=== PATIENT | male | born 1975 | race Hispanic/Latino ===

== ENCOUNTER 2017-07-17 12:35 | Emergency (ER) | payer BC, OTHER ==
[2017-07-17] MEDS ORDERED: NACL 0.9% 1000 ML 1,000 ML IV ONE ×3 (13:21→19:47)
[2017-07-17 13:54] LABS: Eosinophils % (Auto) 1.6 % (0.0-4.3); Hematocrit 48.6 % (35.5-45.6); Hemoglobin 16.3 gm/dl (11.8-15.2); Mean Corpuscular HGB Conc 34 % (32-34); Mean Corpuscular Hemoglobin 28 pg (28-32); Mean Corpuscular Volume 84 fl (84-94); Platelet Count 247 K/mm3 (140-440); Red Cell Distribution Width 13.8 % (13.2-15.2); White Blood Count 11.9 K/mm3 (4.5-11.0)
[2017-07-17 14:02] LABS: Anion Gap 18 mmol/L; BUN/Creatinine Ratio 18; Blood Urea Nitrogen 16 mg/dL (9-20); Carbon Dioxide 27 mmol/L (22-30); Chloride 100.7 mmol/L (98-107); Glucose 113 mg/dL (75-100); Potassium 4.4 mmol/L (3.6-5.0); Sodium 141 mmol/L (137-145)
[2017-07-17 14:04] LABS: Creatine Kinase MB 1.2 ng/mL (0.0-4.0)
[2017-07-17 14:07] LABS: Alanine Aminotransferase 36 units/L (7-56); Albumin 3.9 g/dL (3.9-5); Albumin/Globulin Ratio 1.5 %; Alkaline Phosphatase 66 units/L (35-129); Creatine Kinase 54 units/L (55-170); Total Protein 6.5 g/dL (6.3-8.2)
[2017-07-17 14:08] LABS: Bilirubin,Direct < 0.2 mg/dL (0-0.2); Bilirubin,Indirect 0.1 mg/dL
[2017-07-17 14:09] LABS: Bilirubin,Urine NEG (Negative); Blood,Urine SM (Negative); Ketones,Urine NEG (Negative); Leukocyte Esterase,Urine NEG (Negative); Mucus,Urine FEW /HPF; Nitrite,Urine NEG (Negative); Urobilinogen,Urine < 2.0 mg/dL (<2.0)
[2017-07-17] MEDS ORDERED: GEODON IM ONE ×2 (14:20→14:22)
[2017-07-17] MEDS ORDERED: WATER FOR INJ (PF) 10 ML ONE ×2 (14:21→19:43)
[2017-07-17 16:04] LABS: Urine Drugs of Abuse Note Disclamer
[2017-07-17] MEDS ORDERED: GEODON IM PRN (16:14)
--- NOTE | 2017-07-17 16:15 | Emergency Department Report ---
ED General Adult HPI - General Chief complaint: Overdose Stated complaint: OVERDOSE Time Seen by Provider: 07/17/17 12:53 Source: patient, EMS Mode of arrival: Stretcher Limitations: No Limitations - Related Data Allergies Allergy/AdvReac Type Severity Reaction Status Date / Time sulfamethoxazole AdvReac Hives Verified 07/17/17 13:02 [From Bactrim] trimethoprim [From Bactrim] AdvReac Hives Verified 07/17/17 13:02 ED Review of Systems ROS: Stated complaint: OVERDOSE Other details as noted in HPI ED Past Medical Hx - Past Medical History Previous Medical History?: Yes Hx Hypertension: Yes Hx Arthritis: Yes Hx Psychiatric Treatment: Yes Hx Asthma: Yes - Surgical History Past Surgical History?: No - Social History Smoking Status: Smoker, Current Status Unknown Substance Use Type: Alcohol ED Physical Exam - General Limitations: No Limitations ED Course Vital Signs 07/17/17 07/17/17 07/17/17 12:56 13:20 14:33 Temperature 98.4 F 97.9 F Pulse Rate 96 H 85 92 H Respiratory 20 16 16 Rate Blood Pressure 110/62 Blood Pressure 127/78 105/67 [Left] O2 Sat by Pulse 98 100 100 Oximetry ED Medical Decision Making - Lab Data Result diagrams: 07/17/17 13:18 07/17/17 13:18 Critical care attestation.: If time is entered above; I have spent that time in minutes in the direct care of this critically ill patient, excluding procedure time. ED Disposition Condition: Stable Referrals: PRIMARY CARE [Primary Care Provider] - 3-5 Days
--- NOTE | 2017-07-17 19:46 | Emergency Department Report ---
History of Present Illness - General Chief Complaint: Overdose Stated Complaint: OVERDOSE Time Seen by Provider: 07/17/17 12:53 Source: patient, EMS Mode of arrival: Stretcher Limitations: No Limitations - History of Present Illness Initial Comments: Patient claims to have taken 10 1 mg Xanax, 2 10 mg Lortab and 4 500 mg gabapentin tablets. He is unwilling to state when this occurred. Apparently he was found by family members hiding in [place] in [place]. He does admit to me previous admission to [facility] for one week. He states "that was the worst experience of my life". He is thus relatively coherent when he arrives. He has however poorly cooperative with the nursing staff. He was given 10 mg of Geodon IM. Complaint: intentional overdose -: unknown Intent: unwilling to say How Overdose Was Discovered: other (found by family members) Context: Intentional Overdose: other (unknown) Associated Symptoms: depression Treatments Prior to Arrival: none - Related Data Allergies Allergy/AdvReac Type Severity Reaction Status Date / Time sulfamethoxazole AdvReac Hives Verified 07/17/17 13:02 [From Bactrim] trimethoprim [From Bactrim] AdvReac Hives Verified 07/17/17 13:02 ED Review of Systems ROS: Stated complaint: OVERDOSE Other details as noted in HPI Comment: Unobtainable due to pts medical conditions ED Past Medical Hx - Past Medical History Previous Medical History?: Yes Hx Hypertension: Yes Hx Arthritis: Yes Hx Psychiatric Treatment: Yes Hx Asthma: Yes - Surgical History Past Surgical History?: No - Social History Smoking Status: Smoker, Current Status Unknown Substance Use Type: Alcohol ED Physical Exam - General Limitations: No Limitations General appearance: alert, anxious - Head Head exam: Present: atraumatic, normocephalic - Eye Eye exam: Present: normal appearance. Absent: scleral icterus - ENT ENT exam: Present: mucous membranes moist - Neck Neck exam: Present: normal inspection - Respiratory Respiratory exam: Present: normal lung sounds bilaterally. Absent: respiratory distress - Cardiovascular Cardiovascular Exam: Present: regular rate, normal rhythm. Absent: systolic murmur, diastolic murmur, rubs, gallop - GI/Abdominal GI/Abdominal exam: Present: soft, normal bowel sounds. Absent: distended, tenderness, guarding, rebound, rigid - Rectal Rectal exam: Present: deferred - Extremities Exam Extremities exam: Present: normal inspection - Back Exam Back exam: Present: normal inspection - Neurological Exam Neurological exam: Present: alert, oriented X3, CN II-XII intact. Absent: motor sensory deficit - Psychiatric Psychiatric exam: Present: agitated, anxious - Skin Skin exam: Present: warm, dry, intact, normal color. Absent: rash ED Course Vital Signs 07/17/17 07/17/17 07/17/17 12:56 13:20 14:33 Temperature 98.4 F 97.9 F Pulse Rate 96 H 85 92 H Respiratory 20 16 16 Rate Blood Pressure 110/62 Blood Pressure 127/78 105/67 [Left] O2 Sat by Pulse 98 100 100 Oximetry 07/17/17 07/17/17 16:30 17:30 Temperature 97.9 F Pulse Rate 92 H 88 Respiratory 16 16 Rate Blood Pressure Blood Pressure 125/82 121/74 [Left] O2 Sat by Pulse 100 100 Oximetry - Reevaluation(s) Reevaluation #1: Patient remained poorly cooperative with the nursing staff. He was seen by mental health. He was placed on a 1013. His urine drug screen was positive for a variety of substances. However is a centimeter thin level was negative. He appears to be an individual that can be observed in the emergency Department and medically cleared. He has had to require restraint and additional sedation however. He will be given IV fluids to prevent rhabdomyolysis and additional sedation as necessary. I will essentially round on him tomorrow morning and repeat his laboratory testing. At that time it will be determined whether medical admission is necessary. Should he meet any criteria for medical admission one of my colleagues will do so in the intervening period. 07/17/17 19:44 Reevaluation #2: I have reexamined this patient and found to be hemodynamically stable. He will continue under emergency department observation. 07/17/17 19:46 ED Medical Decision Making - Lab Data Result diagrams: 07/17/17 13:18 07/17/17 13:18 Laboratory Results - last 24 hr 07/17/17 07/17/17 07/17/17 13:18 13:18 13:18 WBC RBC Hgb Hct MCV MCH MCHC RDW Plt Count Lymph % (Auto) White % (Auto) Eos % (Auto) Baso % (Auto) Lymph # White # Eos # Baso # Seg Neutrophils % Seg Neutrophils # Sodium 141 Potassium 4.4 Chloride 100.7 Carbon Dioxide 27 Anion Gap 18 BUN 16 Creatinine 0.9 Estimated GFR > 60 BUN/Creatinine Ratio 18 Glucose 113 H Calcium 9.0 Total Bilirubin Direct Bilirubin Indirect Bilirubin AST ALT Alkaline Phosphatase Total Creatine Kinase CK-MB (CK-2) CK-MB (CK-2) Rel Index Total Protein Albumin Albumin/Globulin Ratio Urine Color Urine Turbidity Urine pH Ur Specific [place] Urine Protein Urine Glucose (UA) Urine Ketones Urine Blood Urine Nitrite Urine Bilirubin Urine Urobilinogen Ur Leukocyte Esterase Urine WBC (Auto) Urine RBC (Auto) U Epithel Cells (Auto) Urine Mucus Salicylates Urine Opiates Screen Urine Methadone Screen Acetaminophen < 15.0 Ur Barbiturates Screen Ur Phencyclidine Scrn Ur Amphetamines Screen U Benzodiazepines Scrn Urine Cocaine Screen U Marijuana (THC) Screen Drugs of Abuse Note Plasma/Serum Alcohol < 0.01 07/17/17 07/17/17 07/17/17 13:18 13:18 13:18 WBC 11.9 H RBC 5.80 H Hgb 16.3 H Hct 48.6 H MCV 84 MCH 28 MCHC 34 RDW 13.8 Plt Count 247 Lymph % (Auto) 24.9 White % (Auto) 5.9 Eos % (Auto) 1.6 Baso % (Auto) 1.0 Lymph # 3.0 White # 0.7 Eos # 0.2 Baso # 0.1 Seg Neutrophils % 66.6 Seg Neutrophils # 7.9 H Sodium Potassium Chloride Carbon Dioxide Anion Gap BUN Creatinine Estimated GFR BUN/Creatinine Ratio Glucose Calcium Total Bilirubin 0.30 Direct Bilirubin < 0.2 Indirect Bilirubin 0.1 AST 16 ALT 36 Alkaline Phosphatase 66 Total Creatine Kinase 54 L CK-MB (CK-2) 1.2 CK-MB (CK-2) Rel Index 2.2 Total Protein 6.5 Albumin 3.9 Albumin/Globulin Ratio 1.5 Urine Color Urine Turbidity Urine pH Ur Specific [place] Urine Protein Urine Glucose (UA) Urine Ketones Urine Blood Urine Nitrite Urine Bilirubin Urine Urobilinogen Ur Leukocyte Esterase Urine WBC (Auto) Urine RBC (Auto) U Epithel Cells (Auto) Urine Mucus Salicylates < 0.3 L Urine Opiates Screen Urine Methadone Screen Acetaminophen Ur Barbiturates Screen Ur Phencyclidine Scrn Ur Amphetamines Screen U Benzodiazepines Scrn Urine Cocaine Screen U Marijuana (THC) Screen Drugs of Abuse Note Plasma/Serum Alcohol 07/17/17 07/17/17 13:57 13:57 WBC RBC Hgb Hct MCV MCH MCHC RDW Plt Count Lymph % (Auto) White % (Auto) Eos % (Auto) Baso % (Auto) Lymph # White # Eos # Baso # Seg Neutrophils % Seg Neutrophils # Sodium Potassium Chloride Carbon Dioxide Anion Gap BUN Creatinine Estimated GFR BUN/Creatinine Ratio Glucose Calcium Total Bilirubin Direct Bilirubin Indirect Bilirubin AST ALT Alkaline Phosphatase Total Creatine Kinase CK-MB (CK-2) CK-MB (CK-2) Rel Index Total Protein Albumin Albumin/Globulin Ratio Urine Color Yellow Urine Turbidity Clear Urine pH 6.0 Ur Specific [place] 1.027 Urine Protein 100 mg/dl Urine Glucose (UA) Neg Urine Ketones Neg Urine Blood Sm Urine Nitrite Neg Urine Bilirubin Neg Urine Urobilinogen < 2.0 Ur Leukocyte Esterase Neg Urine WBC (Auto) 1.0 Urine RBC (Auto) 21.0 U Epithel Cells (Auto) < 1.0 Urine Mucus Few Salicylates Urine Opiates Screen Presumptive positive Urine Methadone Screen Presumptive negative Acetaminophen Ur Barbiturates Screen Presumptive negative Ur Phencyclidine Scrn Presumptive negative Ur Amphetamines Screen Presumptive positive U Benzodiazepines Scrn Presumptive positive Urine Cocaine Screen Presumptive negative U Marijuana (THC) Screen Presumptive positive Drugs of Abuse Note Disclamer Plasma/Serum Alcohol Critical care attestation.: If time is entered above; I have spent that time in minutes in the direct care of this critically ill patient, excluding procedure time. ED Disposition Clinical Impression: Polysubstance abuse Overdose Qualifiers: Encounter type: initial encounter Injury intent: intentional self-harm Qualified Code(s): T50.902A - Poisoning by unspecified drugs, medicaments and biological substances, intentional self-harm, initial encounter Disposition: [id number]/TX-65 PSY HOSP/PSY UNIT Is pt being admited?: No Does the pt Need Aspirin: No Condition: Stable Referrals: PRIMARY CARE, [Primary Care Provider] - 3-5 Days Time of Disposition: 19:47
[2017-07-17] MEDS ORDERED: ATIVAN IV PRN (19:48)
[2017-07-17] MEDS ORDERED: MILK OF MAGNESIA PO PRN (19:49)
[2017-07-17] MEDS ORDERED: ALUM-MAG HYDROX-SIMETH 200-200-20MG/5ML PO PRN (19:49)
[2017-07-17] MEDS ORDERED: ATIVAN IV ONE (21:36)
[2017-07-18] MEDS ORDERED: HALDOL IM PRN (01:46)
--- NOTE | 2017-07-18 13:30 | Consultation ---
History of Present Illness - Reason for Consult Consult date: 07/18/17 Reason for consult: Mental Health Evaluation Requesting physician: HUMBLE MCBRIDE - Chief Complaint Chief complaint: "What happened to me" - History of Present Psychiatric Illness 42 y.o. white male claiming to have taken 10 1 mg Xanax, 2 10 mg Lortab and 4 500 mg gabapentin tablets. Today patient is emotional during the assessment. He had to be redirected several times, because he kept stating, "I don't know how I got here." He stated that he took some pills, but could not ID them during the interview. Patient is positive for opiates, benzos, marijuana, and amphetamines. Patient is a poor historian at this time. He denies SI/HI's. Medications and Allergies Allergies Allergy/AdvReac Type Severity Reaction Status Date / Time sulfamethoxazole AdvReac Hives Verified 07/17/17 13:02 [From Bactrim] trimethoprim [From Bactrim] AdvReac Hives Verified 07/17/17 13:02 Home Medications Medication Instructions Recorded Confirmed Last Taken Type Unobtainable 07/17/17 07/17/17 Unknown History Active Meds: Active Medications Acetaminophen (Tylenol) 650 mg PO Q4HR PRN PRN Reason: Pain MILD(1-3)/Fever >100.5/WILKES Al Hydrox/Mg Hydrox/Simethicone (Alum-Mag Hydrox-Simeth [id number]/5ml) 30 ml PO Q4HR PRN PRN Reason: Indigestion Haloperidol Lactate (Haldol) 5 mg IM Q6HR PRN PRN Reason: Agitation Last Admin: 07/18/17 12:25 Dose: 5 mg Lorazepam (Ativan) 1 mg IV Q4H PRN PRN Reason: Agitation Last Admin: 07/17/17 20:08 Dose: 1 mg Lorazepam (Ativan) 2 mg IM Q4HR PRN PRN Reason: Agitation Magnesium Hydroxide (Milk Of Magnesia) 30 ml PO Q12HR PRN PRN Reason: Constipation Past psychiatric history - Past Medical History Past Medical History: hypertension, other (Asthma) Past Surgical History: No surgical history - past Psychiatric treatment and history psychiatric treatment history: Prior inpatient at [facility]. Denies a fam psy hx. - Social History Social history: lives with family Mental Status Exam - Vital signs Last Vital Signs Temp 98.7 F 07/18/17 08:04 Pulse 100 H 07/18/17 08:04 Resp 20 07/18/17 08:04 BP 112/62 07/18/17 08:04 Pulse Ox 98 07/18/17 08:04 - Exam Narrative exam: MSE: Appearance: cooperative Behavior: regular eye contact Speech: regular rate and tone Mood: emotional Affect: congruent to mood Thought Process: circumstantial Thought Content: denies SI/HI's and AVH's Motor Activity: sitting up in bed Cognition: A/O x3 Insight: limited Judgment: limited Results Result Diagrams: 07/17/17 13:18 07/17/17 13:18 Abnormal lab results 07/17/17 07/17/17 07/17/17 Range/Units 13:18 13:18 13:18 WBC (4.5-11.0) K/mm3 RBC (3.65-5.03) M/mm3 Hgb (11.8-15.2) gm/dl Hct (35.5-45.6) % Seg Neutrophils # (1.8-7.7) K/mm3 Glucose 113 H (75-100) mg/dL Total Creatine Kinase 54 L (55-170) units/L Salicylates < 0.3 L (2.8-20.0) mg/dL 07/17/17 Range/Units 13:18 WBC 11.9 H (4.5-11.0) K/mm3 RBC 5.80 H (3.65-5.03) M/mm3 Hgb 16.3 H (11.8-15.2) gm/dl Hct 48.6 H (35.5-45.6) % Seg Neutrophils # 7.9 H (1.8-7.7) K/mm3 Glucose (75-100) mg/dL Total Creatine Kinase (55-170) units/L Salicylates (2.8-20.0) mg/dL All other labs normal. Assessment and Plan Assessment and plan: Impression: Overdose on multiple pills. Today patient is emotional during the assessment. DDx: R/O Mood DO Recommendation/Plan: Continue 1013 and gather collateral to determine proper dispo and treatment.
--- NOTE | 2017-07-19 12:21 | Progress Note ---
Subjective - Reason for Consult Consult date: 07/19/17 Reason for consult: Psychiatry Follow-up - Chief Complaint Chief complaint: "I need help" 42 y.o. white male claiming to have taken 10 1 mg Xanax, 2 10 mg Lortab and 4 500 mg gabapentin tablets. Today patient is calm and cooperative during the assessment. He is more lucid today than yesterday during the interview. He stated he was trying to kill himself prior to his admission to the hospital. He stated that his life is "awful" and his [id number] hates him. He stated struggling with depression, chronic back pain, and anxiety for years. He would not elaborate more about his current crisis, but stated, "Everything came to a head and I wanted to ." He does admit to a previous suicide attempt by overdose. He would not confirm or deny SI's when asked. He denies HI's and AVH' s. He denies a poor appetite, but admit to erratic sleep. He stated that he can' t get sleep, because his anxiety is heightened. He rate his depression/anxiety 7 /10, with 10 being the worse. He stated that he takes Cymbalta for depression. Mental Status Exam - Vital signs Last Vital Signs Temp 97.9 F 07/19/17 12:03 Pulse 85 07/19/17 12:03 Resp 16 07/19/17 12:03 BP 98/76 07/19/17 12:03 Pulse Ox 98 07/19/17 12:03 - Exam Narrative exam: MSE: Appearance: calm, cooperative Behavior: regular eye contact Speech: regular rate and tone Mood: "depressed" withdrawn Affect: congruent to mood Thought Process: circumstantial Thought Content: denies HI's and AVH's Motor Activity: sitting up in bed Cognition: A/O x3 Insight: variable Judgment: variable Assessment and Plan Impression: MDD severe type. BRADEN. Overdose on multiple pills. Today patient is calm and cooperative during the assessment. No withdrawals noted during assessment (benzos/opiate). DDx: R/O Bipolar DO Recommendation/Plan: Continue 1013 with placement to inpatient psy services. Start Cymbalta 60 mg PO daily for depression and Vistaril 25 mg Q6hrs PRN for anxiety. Discussed possible suicidality/medication induced daiana with patient reference antidepressants. Monitor patient for withdrawals (benzos/opiate).
[2017-07-19] MEDS: CYMBALTA PO SCH (13:08)
[2017-07-20] MEDS: TYLENOL PO PRN ×2 (08:32→21:27)
[2017-07-20] MEDS: VISTARIL PO PRN ×2 (09:56→21:28)
[2017-07-20] MEDS: CYMBALTA PO SCH (09:56)
[2017-07-20] MEDS: ATIVAN IM PRN ×2 (17:00→21:27)
[2017-07-21 08:46] VITALS: BP 112/78
[2017-07-21] MEDS: CYMBALTA PO SCH (10:07)
[2017-07-21] MEDS: VISTARIL PO PRN (10:07)
--- NOTE | 2017-07-21 10:36 | Progress Note ---
Subjective - Reason for Consult Consult date: 07/21/17 Reason for consult: Psychiatry Follow-up - Chief Complaint Chief complaint: "Hello" 42 y.o. white male claiming to have taken 10 1 mg Xanax, 2 10 mg Lortab and 4 500 mg gabapentin tablets. Today patient is calm and cooperative during the assessment. He is aware that he will be transferred to a mental health facility today. He stated that he need help for his depression. He could not confirm or deny being suicidal, but stated that he feels better "mentally." He denies HI's and AVH's. He denies any side effects of his medications. Mental Status Exam - Vital signs Last Vital Signs Temp 98 F 07/21/17 08:45 Pulse 74 07/21/17 08:45 Resp 16 07/21/17 08:46 BP 112/78 07/21/17 08:45 Pulse Ox 99 07/21/17 04:49 - Exam Narrative exam: MSE: Appearance: calm, cooperative Behavior: regular eye contact Speech: regular rate and tone Mood: "better" Affect: congruent to mood Thought Process: circumstantial Thought Content: denies HI's and AVH's Motor Activity: sitting up in bed Cognition: A/O x3 Insight: variable Judgment: variable Assessment and Plan Impression: MDD severe type. BRADEN. Overdose on multiple pills. Today patient is calm and cooperative during the assessment. No withdrawals noted during assessment (benzos/opiate). DDx: R/O Bipolar DO Recommendation/Plan: Continue 1013 with placement to [facility] today. Continue Cymbalta 60 mg PO daily for depression and Vistaril 25 mg Q6hrs PRN for anxiety. Discussed possible suicidality/medication induced daiana with patient reference antidepressants. Monitor patient for withdrawals (benzos/ opiate).
== END 2017-07-21 12:03 ==
LOC: EEVIPCON 12:35 → ED 12:35
DX: T42.4X2A Poisoning by benzodiazepines, intentional self-harm, initial encounter (principal); T39.1X2A Poisoning by 4-Aminophenol derivatives, intentional self-harm, initial encounter; T42.6X2A Poisoning by other antiepileptic and sedative-hypnotic drugs, intentional self-harm, initial encounter; I10 Essential (primary) hypertension; M19.90 Unspecified osteoarthritis, unspecified site; F19.10 Other psychoactive substance abuse, uncomplicated; Z88.1 Allergy status to other antibiotic agents; Z88.2 Allergy status to sulfonamides; Y92.89 Other specified places as the place of occurrence of the external cause
CPT/HCPCS: 36415; 80048; 80074; 80307; 81001; 82550; 82553; 85025; 93005; 93010; 96361; 96372; 96374; 96376; 99285; G0480; J1630; J2060; J3486; J7030; 80320; Q0177